=== PATIENT | female | born 1975 | race African-American/Black ===

== ENCOUNTER 2024-02-21 18:56 | Emergency (ER) | payer OTHER ==
[~2024-02-21] VITALS: Ht 170.2 cm; Wt 81.0 kg
[2024-02-21 18:58] VITALS: BP 142/82; PULSE 72; RESP 16; TEMP 98.3; O2SAT 98
[2024-02-22 01:12] LABS: BASOPHILS % (AUTO) 0.8 % (0.0-2.0); EOSINOPHILS % (AUTO) 1.5 % (1.0-6.0); HEMATOCRIT 35.4 % (36-46); HEMOGLOBIN 11.5 g/dL (12.0-16.0); LYMPHOCYTES # (AUTO) 2.6 K/uL (1.0-4.8); LYMPHOCYTES % (AUTO) 42.8 % (22.0-44.0); MEAN CORPUSCULAR HEMOGLOBIN 28.6 pg (26.0-34.0); MEAN CORPUSCULAR HGB CONC 32.6 G/dL (31.0-37.0); MEAN CORPUSCULAR VOLUME 88 fL (80-100); MONOCYTES # (AUTO) 0.6 K/uL (0.1-1.0); MONOCYTES % (AUTO) 10.4 % (2.0-9.0); NEUTROPHILS # (AUTO) 2.7 K/uL (1.8-7.7); NEUTROPHILS % (AUTO) 44.5 % (40.0-70.0); PLATELET COUNT (AUTO) 327 K/uL (150-450); RED BLOOD CELL COUNT(AUTO) 4.04 MIL/uL (4.00-5.20); RED CELL DISTRIBUTION WIDTH 15.6 % (11.5-14.5); WHITE BLOOD COUNT (AUTO) 6.1 K/uL (4.5-11.0)
[2024-02-22 01:22] LABS: ANION GAP 8 mmol/L (8-16); CALCIUM, TOTAL 9.1 mg/dL (8.8-10.5); CARBON DIOXIDE 32 mmol/L (22-29); CHLORIDE 101 mmol/L (98-107); CREATININE 0.86 mg/dL (0.60-1.30); GLOMERULAR FILTR. RATE CALC > 60 mL/min (>60); GLUCOSE,RANDOM 88 mg/dL (70-110); POTASSIUM 3.5 mmol/L (3.5-5.1); SODIUM SERUM 141 mmol/L (136-145); UREA NITROGEN, BLOOD 7 mg/dL (7-18)
[2024-02-22 01:28] LABS: ALCOHOL, BLOOD (SERUM) < 3 mg/dL (0-10)
[2024-02-22] MEDS: OLANZapine 10 MG TABLET PO ONE (02:10)
== END 2024-02-22 04:22 | disposition home or self-care (01) ==
LOC: EMS 18:56
DX: F28 Other psychotic disorder not due to a substance or known physiological condition (principal); I10 Essential (primary) hypertension; F19.10 Other psychoactive substance abuse, uncomplicated
CPT/HCPCS: 99284; 80048; 85025; 36415; G0480

== ENCOUNTER 2025-03-30 04:46 | Emergency (ER) | payer MEDICAID, OTHER ==
[~2025-03-30] VITALS: Ht 165.1 cm; Wt 77.7 kg
[~2025-03-30 04:46] MED LIST: QUET200T PO
[2025-03-30 04:51] VITALS: TEMP 97.5
[2025-03-30] MEDS: SODIUM CHLORIDE 0.9% 1,000 ML IV ONE (05:31)
[2025-03-30 05:39] LABS: PLATELET COUNT (AUTO) 235 K/uL (150-450); RED BLOOD CELL COUNT(AUTO) 3.67 MIL/uL (4.00-5.20); RED CELL DISTRIBUTION WIDTH 17.5 % (11.5-14.5); WHITE BLOOD COUNT (AUTO) 5.9 K/uL (4.5-11.0)
[2025-03-30 05:46] LABS: CALCIUM, TOTAL 7.6 mg/dL (8.8-10.5); CREATININE 1.24 mg/dL (0.60-1.30); GLOMERULAR FILTR. RATE CALC 55 mL/min (>60); GLUCOSE,RANDOM 113 mg/dL (70-110); SODIUM SERUM 138 mmol/L (136-145); UREA NITROGEN, BLOOD 25 mg/dL (7-18)
[2025-03-30 05:52] LABS: ASPARTATE AMINOTRANSFERASE 21 U/L (15-37); TOTAL PROTEIN, SERUM 6.8 g/dL (6.4-8.2)
[2025-03-30 05:56] LABS: TROPONIN I-HIGH SENSITIVITY 6 ng/L (<51)
[2025-03-30 06:00] LABS: ALCOHOL, BLOOD (SERUM) < 3 mg/dL (0-10)
[2025-03-30 06:10] VITALS: BP 107/49; PULSE 103; RESP 19; O2SAT 95
[2025-03-30] MEDS ORDERED: DIPH50CA37 PO (06:31)
[2025-03-30] MEDS: POTASSIUM CHLORIDE 20 MEQ ER TABLET PO ONE (06:34)
== END 2025-03-30 06:51 | disposition home or self-care (01) ==
LOC: EMS 04:48
DX: F20.0 Paranoid schizophrenia (principal); F41.9 Anxiety disorder, unspecified; E87.6 Hypokalemia; F31.9 Bipolar disorder, unspecified; F15.90 Other stimulant use, unspecified, uncomplicated; Z79.899 Other long term (current) drug therapy
CPT/HCPCS: 99285; 71045; 80048; 80076; 83880; 84484; 85025; 36415; 93005; G0480

== ENCOUNTER 2025-04-14 06:09 | Emergency (ER) | payer OTHER ==
[~2025-04-14] VITALS: Ht 165.1 cm; Wt 73.6 kg
[~2025-04-14 06:09] MED LIST changes: +DIPH50CA37 PO
[2025-04-14 06:35] VITALS: BP 154/112; PULSE 80; RESP 20; TEMP 98.6; O2SAT 99
[2025-04-14 07:47] LABS: PLATELET COUNT (AUTO) 271 K/uL (150-450); RED BLOOD CELL COUNT(AUTO) 4.17 MIL/uL (4.00-5.20); RED CELL DISTRIBUTION WIDTH 17.2 % (11.5-14.5); WHITE BLOOD COUNT (AUTO) 5.8 K/uL (4.5-11.0)
[2025-04-14 07:52] LABS: CALCIUM, TOTAL 9.1 mg/dL (8.8-10.5); CREATININE 0.89 mg/dL (0.60-1.30); GLOMERULAR FILTR. RATE CALC > 60 mL/min (>60); GLUCOSE,RANDOM 88 mg/dL (70-110); SODIUM SERUM 142 mmol/L (136-145); UREA NITROGEN, BLOOD 12 mg/dL (7-18)
== END 2025-04-14 08:27 | disposition home or self-care (01) ==
LOC: EMS 06:09
DX: F20.0 Paranoid schizophrenia (principal); F41.9 Anxiety disorder, unspecified; F19.10 Other psychoactive substance abuse, uncomplicated; J45.909 Unspecified asthma, uncomplicated; F31.9 Bipolar disorder, unspecified; I10 Essential (primary) hypertension; F15.90 Other stimulant use, unspecified, uncomplicated
CPT/HCPCS: 99284; 80048; 85025; G0480